=== PATIENT | female | born 1995 | race American Indian/Alaskan Native ===

== ENCOUNTER 2016-12-19 13:01 | Emergency (ER) | payer MEDICAID ==
[2016-12-19 14:25] VITALS: BP 110/64
[2016-12-19 14:48] LABS: Basophils % (Auto) 0.2 % (0.0-1.8); Eosinophils % (Auto) 0.5 % (0.0-4.3); Hematocrit 38.4 % (30.3-42.9); Hemoglobin 12.5 gm/dl (10.1-14.3); Mean Corpuscular HGB Conc 33 % (30-34); Mean Corpuscular Hemoglobin 29 pg (28-32); Mean Corpuscular Volume 88 fl (79-97); Platelet Count 235 K/mm3 (140-440); Red Blood Count 4.37 M/mm3 (3.65-5.03); Red Cell Distribution Width 12.8 % (13.2-15.2); White Blood Count 5.5 K/mm3 (4.5-11.0)
[2016-12-19 15:09] LABS: Alanine Aminotransferase 19 units/L (7-56); Albumin 4.7 g/dL (3.9-5); Albumin/Globulin Ratio 1.7 %; Alkaline Phosphatase 85 units/L (35-129); Anion Gap 19 mmol/L; BUN/Creatinine Ratio 14.28; Bilirubin,Total 0.5 mg/dL (0.1-1.2); Blood Urea Nitrogen 10 mg/dL (7-17); Calcium 9.3 mg/dL (8.4-10.2); Carbon Dioxide 25 mmol/L (22-30); Chloride 98.9 mmol/L (98-107); Glucose 79 mg/dL (65-100); Lipase 153 units/L (13-60); Potassium 3.6 mmol/L (3.6-5.0); Sodium 139 mmol/L (137-145); Total Protein 7.4 g/dL (6.3-8.2)
[2016-12-19 15:13] LABS: Bilirubin,Urine NEG (Negative); Blood,Urine NEG (Negative); Ketones,Urine NEG (Negative); Leukocyte Esterase,Urine NEG (Negative); Mucus,Urine FEW /HPF; Nitrite,Urine NEG (Negative); Protein,Urine <15 mg/dL mg/dL (Negative); Urobilinogen,Urine < 2.0 mg/dL (<2.0)
--- NOTE | 2016-12-21 21:35 | ED Elopement Review ---
ED Pt Elopement review - Results review Lab results: Laboratory Tests 12/19/16 12/19/16 12/19/16 14:34 14:34 14:44 WBC 5.5 RBC 4.37 Hgb 12.5 Hct 38.4 MCV 88 MCH 29 MCHC 33 RDW 12.8 L Plt Count 235 Lymph % (Auto) 21.1 Mcpherson % (Auto) 5.2 Eos % (Auto) 0.5 Baso % (Auto) 0.2 Lymph # 1.2 Mcpherson # 0.3 Eos # 0.0 Baso # 0.0 Seg Neutrophils % 73.0 H Seg Neutrophils # 4.0 Sodium 139 Potassium 3.6 Chloride 98.9 Carbon Dioxide 25 Anion Gap 19 BUN 10 Creatinine 0.7 Estimated GFR > 60 BUN/Creatinine Ratio 14.28 Glucose 79 Calcium 9.3 Total Bilirubin 0.5 AST 17 ALT 19 Alkaline Phosphatase 85 Total Protein 7.4 Albumin 4.7 Albumin/Globulin Ratio 1.7 Lipase 153 H Urine Color Yellow Urine Turbidity Clear Urine pH 8.0 H Ur Specific [place] 1.024 Urine Protein <15 mg/dl Urine Glucose (UA) Neg Urine Ketones Neg Urine Blood Neg Urine Nitrite Neg Urine Bilirubin Neg Urine Urobilinogen < 2.0 Ur Leukocyte Esterase Neg Urine WBC (Auto) 1.0 Urine RBC (Auto) 4.0 U Epithel Cells (Auto) 10.0 Urine Mucus Few Urine HCG, Qual Negative - Call Back decision Pt Call Back Decision: Pt to F/U with PMD (lipase 153 with abd pain, pancreatitis?)
== END 2016-12-19 21:05 | disposition left against medical advice (07) ==
LOC: ED 13:01
DX: R10.30 Lower abdominal pain, unspecified (principal); R11.2 Nausea with vomiting, unspecified; R19.7 Diarrhea, unspecified; Z53.21 Procedure and treatment not carried out due to patient leaving prior to being seen by health care provider
CPT/HCPCS: 36415; 80053; 81001; 81025; 83690; 85025

== ENCOUNTER 2020-11-02 17:53 | Outpatient (CLI) | payer OTHER ==
[2020-11-02 18:30] VITALS: BP 115/57
== END 2020-11-02 19:16 | disposition home or self-care (01) ==
LOC: TRG 17:53 → APU 17:54 → TRG 19:16
PROVIDERS: ATTEND Obstetrics & Gynecology
DX: O36.8130 Decreased fetal movements, third trimester, not applicable or unspecified (principal); Z3A.37 37 weeks gestation of pregnancy
CPT/HCPCS: 59025

== ENCOUNTER 2020-11-10 00:03 | Inpatient (IN) | payer OTHER ==
[2020-11-10] MEDS ORDERED: LACTATED RINGERS 1,000 ML ONE (00:31)
--- NOTE | 2020-11-10 01:13 | History and Physical Report ---
History of Present Illness Date of examination: 11/10/20 Chief complaint: contractions History of present illness: Pt is a 25 year old MEHREEN 11/17/20 at 39w0d who presents with painful contractions since about 5 pm 11/09/20. She denies vaginal bleeding or leakage of fluid. She has had care at [facility] since 17 wks complicated by GBS UTI and genital herpes without lesion or prodrome. She is GBS positive. Past History Past Medical History: no pertinent history Past Surgical History: section DOPEMAN History: herpes Family/Genetic History: cancer (cervical cancer ) Social history: no significant social history - Obstetrical History Expected Date of Delivery: 11/17/20 Actual Gestation: 39 Week(s) 0 Day(s) : 5 Para: 2 Hx # Term Pregnancies: 2 Number of Pregnancies: 0 Spontaneous Abortions: 1 Induced : 1 Number of Living Children: 3 (1 mutiple ) Medications and Allergies Allergies Allergy/AdvReac Type Severity Reaction Status Date / Time No Known Allergies Allergy Verified 11/02/20 18:19 Home Medications Medication Instructions Recorded Confirmed Last Taken Type Amoxicillin/Potassium Clav 1 each PO BID 3 Days #6 tablet 10/30/19 11/10/20 Unknown Rx [Augmentin 500-125 Tablet] Metoclopramide [Reglan] 10 mg PO TID PRN #21 tab 10/30/19 11/10/20 Unknown Rx diphenhydrAMINE HCL 25 mg PO TID PRN #21 tablet 10/30/19 11/10/20 Unknown Rx [Diphenhydramine HCl] Valacyclovir 1 tab PO QDAY 11/10/20 11/10/20 11/09/20 10:00 History Active Meds: Active Medications Citric Acid/Sodium Citrate (Bicitra Oral Liqd 30ml) 30 ml PO ONCE ONE Stop: 11/10/20 01:08 Famotidine (Famotidine 20 Mg/2 Ml Inj) 20 mg IV ONCE ONE Stop: 11/10/20 01:08 Lactated Ringer's (Lactated Ringers) 1,000 mls @ 2,250 mls/hr IV PREOP DEL Stop: 11/11/20 01:42 Oxytocin/Sodium Chloride (Pitocin/Ns 30 Unit/500ml) 30 units in 500 mls @ 0 mls/hr IV TITR DEL; Protocol Cefazolin Sodium (Ancef/Sterile Water 2 Gm/20 Ml) 2 gm in 20 mls @ 80 mls/hr IV PREOP NR; Protocol Metoclopramide HCl (Metoclopramide 10 Mg/2 Ml Inj) 10 mg IV ONCE ONE Stop: 11/10/20 01:08 Review of Systems All systems: negative - Vital Signs Vital signs: Vital Signs Pulse BP Pulse Ox 98 H 132/89 94 11/10/20 00:11 11/10/20 00:11 11/10/20 00:11 Temp Pulse Resp BP Pulse Ox 98.7 F 99 H 18 132/89 99 11/10/20 00:47 11/10/20 01:07 11/10/20 00:47 11/10/20 00:47 11/10/20 01:07 - Physical Exam Breasts: Positive: deferred Abdomen: Positive: soft (gravid ) Uterus: Positive: enlarged (gravid ) - Obstetrical FHR: auscultation normal Uterine Contraction Monitor Mode: External Cervical Dilatation: 3 Uterine Contraction Pattern: Irregular Uterine Tone Measurement Phase: Resting Uterine Contraction Intensity: Strong/Firm Results All other labs normal. Assessment and Plan A: IUP at 39w0d Latent Labor Previous x 1 Genital Herpes GBS Positive P: Proceed with repeat section and other indicated procedures.
[2020-11-10] MEDS ORDERED: LACTATED RINGERS 1,000 ML IV SCH (01:15)
[2020-11-10 01:24] LABS: Basophils % (Auto) 0.3 % (0.0-1.8); Eosinophils % (Auto) 0.5 % (0.0-4.3); Hematocrit 32.2 % (30.3-42.9); Hemoglobin 10.9 gm/dl (10.1-14.3); Lymphocytes # (Auto) 1.3 K/mm3 (1.2-5.4); Lymphocytes % (Auto) 16.5 % (13.4-35.0); Mean Corpuscular HGB Conc 34 % (30-34); Mean Corpuscular Volume 85 fl (79-97); Monocytes # (Auto) 0.8 K/mm3 (0.0-0.8); Monocytes % (Auto) 9.7 % (0.0-7.3); Platelet Count 228 K/mm3 (140-440); Red Blood Count 3.81 M/mm3 (3.65-5.03)
[2020-11-10] MEDS ORDERED: PROMETHAZINE 25 MG TAB PO PRN (01:34)
[2020-11-10] MEDS ORDERED: NalbUPHINE 10 MG/1 ML INJ IV PRN (01:34)
[2020-11-10] MEDS ORDERED: diphenhydrAMINE 50 MG/ML VIAL IV PRN (01:34)
[2020-11-10] MEDS ORDERED: NALOXONE 0.4 MG/1 ML INJ IV PRN ×2 (01:34→05:29)
[2020-11-10] MEDS ORDERED: HYDROmorphone 1 MG/1 ML INJ IV PRN (01:34)
[2020-11-10] MEDS ORDERED: ONDANSETRON 4 MG/2 ML INJ IV PRN ×2 (01:34→05:29)
[2020-11-10] MEDS ORDERED: PROMETHAZINE 25 MG RECT SUPP PR PRN (01:34)
--- NOTE | 2020-11-10 01:43 | Anesthesia Day of Surgery ---
Anesthesia Day of Surgery - Day of Surgery Patient Examined: Yes Patient H&P Reviewed: Yes Patient is NPO: Yes Beta Blockers: No Cardiac Clearance: No Pulmonary Clearance: No Michael's Test: N/A
--- NOTE | 2020-11-10 01:44 | Anesthesia Consultation ---
Anesthesia Consult and Med Hx Date of service: 11/10/20 - Airway Anesthetic Teeth Evaluation: Good ROM Head & Neck: Adequate Mental/Hyoid Distance: Adequate Mallampati Class: Class II Intubation Access Assessment: Probably Good - Pulmonary Exam CTA: Yes - Cardiac Exam Cardiac Exam: RRR - Pre-Operative Health Status ASA Pre-Surgery Classification: ASA2 Proposed Anesthetic Plan: Spinal - Pulmonary Hx Smoking: No Hx Asthma: No Hx Sleep Apnea: No - Cardiovascular System Hx Hypertension: No Hx Heart Attack/AMI: No Hx Angina: No - Central Nervous System Hx Seizures: No Hx Psychiatric Problems: No - Gastrointestinal Hx Gastroesophageal Reflux Disease: No - Endocrine Hx Renal Disease: No Hx Insulin Dependent Diabetes: No Hx Non-Insulin Dependent Diabetes: No Hx Hypothyroidism: No Hx Hyperthyroidism: No - Hematic Hx Anemia: Yes (with twin ) Hx Sickle Cell Disease: No - Other Systems Hx Alcohol Use: No
[2020-11-10] MEDS ORDERED: OXYTOCIN DRIP 30 UNITS/500 ML BAG IV SCH ×2 (02:00→05:29)
[2020-11-10] MEDS ORDERED: ceFAZolin/Water 2 GM/20 ML 2 GM/20 ML SYRINGE IV NR (02:00)
[2020-11-10] MEDS ORDERED: METOCLOPRAMIDE 10 MG/2 ML INJ IV ONE (02:07)
[2020-11-10] MEDS ORDERED: FAMOTIDINE 20 MG/2 ML INJ IV ONE (02:07)
[2020-11-10] MEDS ORDERED: BICITRA ORAL LIQD 30ML PO ONE (02:07)
[2020-11-10] MEDS ORDERED: ONDANSETRON 4 MG/2 ML INJ ONE (02:09)
[2020-11-10] MEDS ORDERED: BUPIVACAINE /DEX-WATER 0.75% (2 ML) AMPULE INFILTRATI ONE (02:09)
[2020-11-10] MEDS ORDERED: KETOROLAC 30 MG/1 ML INJ ONE (02:09)
[2020-11-10] MEDS ORDERED: ePHEDrine SULFATE 50 MG/1 ML INJ ONE (02:09)
[2020-11-10] MEDS ORDERED: WATER FOR IRRIG STERILE 1,500 ML BOTTLE IR ONE (02:16)
[2020-11-10] MEDS ORDERED: ceFAZolin/STERILE WATER 2 GM/20 ML SYRINGE IV ONE (02:16)
[2020-11-10] MEDS ORDERED: SODIUM CHLORIDE 0.9% IRR 1,500 ML BOTTLE IR ONE (02:16)
[2020-11-10] MEDS ORDERED: PHENYLEPHRINE/NS 1,000 MCG/10 ML SYRINGE (OR USE) IV ONE (02:17)
[2020-11-10] MEDS ORDERED: METHYLERGONOVINE MALEATE 0.2 MG/ML VIAL IM ONE (02:29)
[2020-11-10] MEDS ORDERED: OXYTOCIN 10 UNIT/1 ML INJ ONE (02:29)
[2020-11-10] MEDS ORDERED: fentaNYL 100 MCG/2 ML INJ ONE (02:31)
--- NOTE | 2020-11-10 03:49 | Procedure Note ---
OB Delivery Note - Delivery Date of Delivery: 11/10/20 Surgeon: CRISTO CHANDLER Estimated blood loss: 1000cc - Section Preop diagnosis: repeat , other (active labor) Postop diagnosis: same section procedure: section, repeat low transverse Disposition: PACU Complications: uterine atony Narrative: Please see operative report. - A at 1 minute: 8 at 5 minutes: 9 Infant Gender: Male (3160g (6lb 15oz) @ 0226 am)
--- NOTE | 2020-11-10 03:55 | Operative Report ---
Operative Report Operative Report: Date of procedure: November 10, 2020 Preoperative diagnosis: 1) IUP at 39w0d 2) Previous x 1 3) Labor Postoperative diagnosis: Same 4) Uterine Atony Procedure: Repeat low transverse section Surgeon: Gabriela Lobato M.D. Anesthesia: Regional Findings: 1) Viable male , Apgars 8 and 9, weight 3160 g, (6 lb 15 oz) in cephalic presentation 2) Normal-appearing uterus ovaries and tubes Estimated blood loss: 1000 mL IV fluids: 1000 mL Urine output: 200 mL, clear at the end of the procedure Drains: Juarez to gravity Specimens: Placenta to pathology Complications: Uterine Atony. Counts correct x 3 Medications: Methergine 0.2 mg IM and additional 10 units of pitocin added to IV fluids Disposition: Stable to PACU Indication for procedure: Pt is a 25 year old at 39 wks with a history of one prior who presents in labor. She if offered trial of labor after vs section and she elects to proceed with section. Operation in detail: After the risks, benefits, alternatives and complications were explained to the patient she gave informed consent for the procedure. She was subsequently taken to the operating room where regional anesthesia was noted to be adequate. She was placed in the dorsal supine position with leftward tilt and prepped and draped in a normal sterile fashion. heart tones were noted prior to incision. A timeout was performed. A Pfannenstiel skin incision was made with the knife and carried down to the layer of the fascia with the Bovie. The fascia was incised in the midline and the fascial incision was extended bilaterally with the Bovie. The fascial incision was then stretched. The rectus muscles were then in the midline and partially transected for adequate visualization. The peritoneum was then entered bluntly. The peritoneal incision was extended with good visualization of the bladder. The peritoneal incision was then stretched. An Sergio retractor was placed. The bladder blade was then placed. The vesicouterine peritoneuam was graped with smooth pick ups and incised with Metzenbaum scissors . A bladder flap was then created digitally and the bladder blade was replaced. A transverse incision was made in the lower uterine segment with a knife and extended bilaterally with the bandage scissors. Amniotomy was performed with egress of clear fluid. head delivered with ease, followed by shoulders and body. bulb suctioned at delivery. Cord clamped and cut. handed to NICU staff in attendance. Cord blood was collected. The placenta was then delivered manually. The uterus was then exteriorized and cleared of all clots and debris. The hysterotomy was then reapproximated with 0 Vicryl in a running locked fashion. A second layer of the same suture was used in imbricating fashion. The hysterotomy was inspected and hemostasis was noted. The gutters were irrigated and cleared of all clots and debris. The hysterotomy was again inspected and noted to be hemostatic. Surgicel was placed over the hysterotomy. The Sergio retractor was removed. The uterus was placed back into the peritoneal cavity. The peritoneum was reapproximated with 2-0 Vicryl in a running fashion incorporating the rectus muscles. Surgicel was placed over the rectus muscles. The fascia was reapproximated with 0-Vicryl in a running fashion. The skin was reapproximated with 4-0 Vicryl in a subcuticular fashion. The incision was then covered with steri strips and a pressure dressing. The procedure was then ended. The patient tolerated the procedure well and was taken to the PACU in stable condition. All instrument, lap, and needle counts were correct 3.
[2020-11-10] MEDS ORDERED: MORPHINE 4 MG/1 ML INJ IV PRN (05:29)
[2020-11-10] MEDS ORDERED: ACETAMINOPHEN 325 MG TAB PO PRN (05:29)
[2020-11-10] MEDS ORDERED: LANOLIN/ZINC/DIMETHICONE (LANSINOH) 7 GM TP PRN (05:29)
[2020-11-10] MEDS ORDERED: WITCH HAZEL/ GLYCERIN PAD TP PRN (05:29)
[2020-11-10] MEDS ORDERED: MORPHINE 2 MG/1 ML INJ IV PRN (05:29)
[2020-11-10] MEDS ORDERED: SIMETHICONE 80 MG CHEW TAB PO PRN (05:29)
[2020-11-10] MEDS: KETOROLAC 30 MG/1 ML INJ IV SCH ×4 (06:01→22:36)
[2020-11-10] MEDS: D5W/LACTATED RINGERS 1,000 ML IV SCH ×2 (06:01→12:56)
--- NOTE | 2020-11-10 08:59 | Progress Note ---
Spinal Anesthesia Block - Spinal Anesthesia Block Start Time: 01:47 Stop Time: 02:00 Performed by:: CHRISTOPHER PAUL Procedure: Spinal anesthesia block is being performed for [C/S]. H&P, labs have been reviewed. Patient's questions and concerns have been answered. Informed consent has been performed. Timeout has was performed. Patient in sitting position on side of bed. Sterile prep and drape was performed. 3 mL 1% lidocaine skin wheal at L [3]-L [4]. Needle introducer advanced. 25-gauge spinal needle advanced, [+] CSF [-] blood. [Marcaine 10.5mg and Precedex 5mcg] Spinal dose was given. All needles removed. Patient tolerated procedure well.
[2020-11-10] MEDS: ceFAZolin/NS 1 GM/50 ML 1 GM/50 ML BAG IV SCH ×2 (09:24→17:16)
[2020-11-10] MEDS: FERROUS SULFATE 325 MG TAB PO SCH (09:24)
--- NOTE | 2020-11-10 13:45 | Post Anesthesia Evaluation ---
- Post Anesthesia Evaluation Patient Participated: Yes Airway Patent: Yes Stable Respiratory Function: Yes Nausea/Vomiting: No Temp > 96.8F: Yes Pain Manageable: Yes Adequeate Hydration: Yes Anesthesia Complications: No Block Receding Appropriately: Yes
[2020-11-10] MEDS: oxyCODONE /ACETAMINOPHEN 5-325MG TAB PO PRN (15:36)
[2020-11-10 17:52] LABS: Hematocrit 30.6 % (30.3-42.9); Hemoglobin 10.1 gm/dl (10.1-14.3)
[2020-11-11] MEDS: oxyCODONE /ACETAMINOPHEN 5-325MG TAB PO PRN ×4 (03:04→20:05)
[2020-11-11] MEDS ORDERED: MAGNESIUM HYDROXIDE (MOM) ORAL LIQD UDC PO PRN (03:56)
[2020-11-11] MEDS ORDERED: DIPHtheria,PERTUSSIS(ACELL),TETANUS VACCINE/PF 0.5 ML VIAL IM ONE (06:00)
[2020-11-11] MEDS ORDERED: MEASLES, MUMPS & RUBELLA 12,500 UNIT/0.5 ML VACCINE SUB-Q ONE (06:00)
--- NOTE | 2020-11-11 07:25 | Progress Note ---
Assessment and Plan - Patient Problems (1) delivery delivered Current Visit: Yes Status: Acute Plan to address problem: Patient is doing well She is not demonstrating any respiratory distress (2) COVID-19 Current Visit: Yes Status: Acute Subjective - Subjective Date of service: 11/11/20 Interval history: Patient without any significant complaints today. She reports tolerating a clear diet and has voided multiple times. She also states she has passed flatus. Patient reports: appetite normal, voiding normally, pain well controlled, flatus Nash: doing well Objective - Vital Signs Latest vital signs: Vital Signs Temp Pulse Resp BP BP Pulse Ox 11/11/20 00:00 98 F 77 16 112/78 11/10/20 21:50 97.5 F L 74 18 102/62 98 11/10/20 15:55 98.7 F 82 20 102/62 11/10/20 07:45 98.1 F 96 H 20 116/63 Intake and Output 11/10/20 11/11/20 11/11/20 22:59 06:59 14:59 Intake Total 1000 600 Output Total 1200 Balance -200 600 Intake: Oral 1000 Intake, Free Water 600 Output: Urine 1200 Indwelling Catheter 600 Void 600 Other: Total, Intake Amount 320 Total, Output Amount 600 # Voids Void 1 - Exam Incision: Present: dressed - Labs Labs: Abnormal lab results 11/10/20 Range/Units Unknown Coronavirus (PCR) Positive A (Negative)
[2020-11-11] MEDS: FERROUS SULFATE 325 MG TAB PO SCH (10:13)
[2020-11-11] MEDS: IBUPROFEN 800 MG TAB PO PRN ×2 (12:37→17:57)
[2020-11-12] MEDS: oxyCODONE /ACETAMINOPHEN 5-325MG TAB PO PRN ×2 (02:43→08:52)
--- NOTE | 2020-11-12 08:45 | Progress Note ---
Assessment and Plan A: POD2 s/p rLTCS COVID-19 positive Vital signs and labs stable P: COVID precautions Discharge to home today Subjective - Subjective Date of service: 11/12/20 Principal diagnosis: s/p rLTCS Interval history: POD2 s/p rLTCS at term Patient reports: appetite normal, voiding normally, pain well controlled, flatus, ambulating normally, other (pumping breasts) : doing well, bottle feeding Objective - Vital Signs Latest vital signs: Vital Signs Temp Pulse Resp BP BP Pulse Ox 11/12/20 08:10 97.8 F 69 19 99/57 98 11/12/20 02:43 18 11/12/20 01:10 98.1 F 77 20 101/58 97 11/11/20 20:05 18 11/11/20 18:16 97.8 F 76 18 107/64 100 11/11/20 17:57 18 11/11/20 15:55 18 11/11/20 12:37 18 11/11/20 10:12 18 Intake and Output 11/11/20 11/12/20 11/12/20 23:59 07:59 15:59 Intake Total 1680 480 Balance 1680 480 Intake: Oral 840 480 Intake, Free Water 840 Other: Total, Intake Amount 240 240 # Voids Void 1 1 - Exam Abdomen: Present: soft. Absent: distention, tenderness, guarding Uterus: Present: firm, fundal height at umbilicus. Absent: bogginess, tenderness Extremities: Present: normal Incision: Present: normal, dry, intact
--- NOTE | 2020-11-12 08:47 | Discharge Summary ---
Providers - Providers Date of Admission: 11/10/20 01:09 Date of discharge: 11/12/20 Attending physician: CRISTO CHANDLER 11/10/20 05:29 Consult to Fuel Cell Technician [CONS] Routine Reason For Exam: Primary care physician: CRISTO CHANDLER Hospitalization Reason for admission: active labor, IUP at term Delivery: Procedure: section, repeat low transverse Incision: normal, dry, intact complications: none Discharge diagnosis: IUP at term delivered [place] baby: male Hospital course: Pt arrived in active labor and elected for a repeat LTCS. She was found to be positive for COVID-19, without symptoms. She met discharge criteria on POD2. Condition at discharge: Good Disposition: DC- TO HOME OR SELFCARE Plan - Discharge Medications Prescriptions: Ibuprofen [Motrin] 800 mg PO Q8HR PRN #60 tablet PRN Reason: Pain , Severe (7-10) oxyCODONE /ACETAMINOPHEN [Percocet 5/325] 1 tab PO Q6HR PRN #30 tablet PRN Reason: Pain - Provider Discharge Summary Activity: routine, no sex for 6 weeks, no heavy lifting 4 weeks, no strenuous exercise Diet: routine Instructions: routine Additional instructions: [] Smoking cessation referral if applicable(refer to patient education folder for contact #) [] Refer to [facility] Booklet Call your doctor immediately for: * Fever > 100.5 * Heavy vaginal bleeding ( >1 pad per hour) * Severe persistent headache * Shortness of breath * Reddened, hot, painful area to leg or breast * Drainage or odor from incision. * Keep incision clean and dry at all times and follow doctor's instructions regarding bathing/showering - Follow up plan Follow up: CLARK RAMIREZ CNM [Advanced Practice Nurse] - 14 Days (Please call office to schedule appointment.)
[2020-11-12] MEDS: FERROUS SULFATE 325 MG TAB PO SCH (08:51)
[2020-11-12] MEDS: IBUPROFEN 800 MG TAB PO PRN (13:58)
[2020-11-12 14:31] VITALS: BP 109/59
== END 2020-11-12 17:25 | disposition home or self-care (01) | DRG 765 ==
LOC: TRG 00:03 → APU 00:08 → TRG 01:08 → APU 01:09 → OB 04:29
PROVIDERS: ADMIT Obstetrics & Gynecology; ATTEND Obstetrics & Gynecology
PROC: 10D00Z1 Extraction of Products of Conception, Low, Open Approach (ICD-10-PCS; principal; 2020-11-10)
PROC: 3E0234Z Introduction of Serum, Toxoid and Vaccine into Muscle, Percutaneous Approach (ICD-10-PCS; 2020-11-11)
PROC: 3E0134Z Introduction of Serum, Toxoid and Vaccine into Subcutaneous Tissue, Percutaneous Approach (ICD-10-PCS; 2020-11-11)
DX: O34.211 Maternal care for low transverse scar from previous cesarean delivery (principal); U07.1 COVID-19; O98.32 Other infections with a predominantly sexual mode of transmission complicating childbirth; O98.52 Other viral diseases complicating childbirth; Z37.0 Single live birth; Z3A.39 39 weeks gestation of pregnancy; A60.00 Herpesviral infection of urogenital system, unspecified; O99.824 Streptococcus B carrier state complicating childbirth; O62.2 Other uterine inertia; Z23 Encounter for immunization
CPT/HCPCS: 36415; 85014; 85018; 85025; 86850; 86900; 86901; 88307; G0378; J0690; J1885; J2270; J2370; J2405; J2590; J2765; J3010; J3490; J7121; U0003